=== PATIENT | female | born 1995 | race Caucasian/White ===

== ENCOUNTER → 2021-12-21 | Outpatient (CLI) | payer SELFPAY ==
[2021-12-21 10:07] LABS: Thyroid Stim Hormone (TSH) 1.33 uIU/mL (0.358-3.74)
== END | disposition home or self-care (01) ==
LOC: PAVLAB 09:18
PROVIDERS: PCP Physician Assistant; Referring Provider Obstetrics & Gynecology; Visit Provider Obstetrics & Gynecology
DX: N97.9 Female infertility, unspecified (principal)
CPT/HCPCS: 36415; 84443

== ENCOUNTER → 2022-03-24 | Outpatient (CLI) | payer BC, SELFPAY ==
--- NOTE | 2022-03-24 12:14 | RAD_ITS ---
STUDY: HSG REASON FOR EXAM: Female, 26 years old. Infertility RADIATION DOSAGE (If Supplied By Facility): CTDIvol = ( ) mGy, DLP = ( ) mGycm. Individualized dose optimization techniques were used for this CT.? FLUOROSCOPY TIME (if supplied): ( 0:29 ) minutes/seconds. 2 fluoroscopic images obtained TECHNIQUE: Procedure performed by Dr. Calderon COMPARISON: None. FINDINGS: Contrast was injected into the endometrial cavity by Dr. Calderon in a retrograde manner. There is no impingement upon or abnormality noted within the endometrium. There is free flow of contrast into both fallopian tubes. No evidence of stenosis or obstruction. RAD/Salpingogram IMPRESSION: Normal hysterosalpingogram Electronically Signed: Torey Rg MD at 13:16 EDT ,
--- NOTE | 2022-03-25 11:28 | OP.PCM_ITS ---
Operative Report Date of Procedure: 03/25/22 Preop diagnosis: Infertility Postop diagnosis: Same plus bilateral tubal patency Procedure: Hysterosalpingogram Surgeon: Pippa Calderon Implantable devices: None Complications: None Findings: Bilateral tubal patency and normal uterine cavity Operative details: Patient was taken to the x-ray room and was placed on the x- ray table and was in the dorsal lithotomy position. Speculum was placed in the vagina and the cervix prepped with Betadine and the HSG catheter was easily introduced into the uterus and speculum removed. Radiologist was brought in and while pushing radiopaque dye into the uterus via the HSG catheter the radiologist took multiple images and views and confirmed bilateral tubal patency seen. No gross uterine filling defects or abnormalities were seen. All instruments removed from the vagina and the uterus without complication. Patient tolerated the procedure well. Multi Select Codes Urinary/Genital Urinary/Genital CPT Codes: 12366 HSG/SIS
== END | disposition home or self-care (01) ==
PROVIDERS: PCP Physician Assistant; Referring Provider Obstetrics & Gynecology; Visit Provider Obstetrics & Gynecology
DX: N97.9 Female infertility, unspecified (principal)
CPT/HCPCS: 58340; 74740; Q9967

== ENCOUNTER 2022-11-09 18:38 | Observation (INO) | payer BC, SELFPAY ==
[2022-11-09 19:37] VITALS: BMI 25.1
[2022-11-09] MEDS: 0.9% Normal Saline 1,000 ML 125 ML IV (19:41)
[2022-11-09] MEDS: 0.9% Saline Lock 10 ML Syringe IV (19:53)
[2022-11-09] MEDS: Ketorolac 30 MG/ML Syringe IV (19:53)
[2022-11-09 19:55] VITALS: BP 122/58; PULSE 95; RESP 18; TEMP 37.7; O2SAT 98
[2022-11-09 20:45] LABS: Absolute Lymphocyte Count 1.07 X10^3/uL (0.83-4.51); Absolute Neutrophil Count 12.4 X10^3/uL (2.0-7.7); Basophil# 0.04 X10^3/uL; Basophil% 0.3 % (0-1); Eosinophil# 0.01 X10^3/uL; Eosinophils% 0.1 % (0-5); Hematocrit 36.6 % (37-47); Hemoglobin 11.9 g/dL (12.0-15.0); Lymphocyte # 1.07 X10^3/ul (0.83-4.51); Lymphocyte % 7.6 % (19-41); Mean Corp Hgb Conc 32.5 g/dL (32-36); Mean Corpuscular Hgb 30.1 pg (27.0-32.0); Mean Corpuscular Volume 92.7 fL (81-99); Mean Platelet Vol. 11.6 fl (6.2-12.0); Monocyte# 0.57 X10^3/uL; NRBC Flagged by Analyzer 0 % (0-5); Neutrophil # 12.38 X10^3/uL (2.7-7.7); Neutrophil % 87.4 % (47-70); Platelet Count 174 K/mm3 (150-450); RBC Distribution Width CV 12.7 % (11.6-14.6); RBC Distribution Width SD 43.3 fl (35.1-43.9); Red Blood Count 3.95 M/mm3 (4.2-5.4); White Blood Count 14.2 K/mm3 (4.4-11.0)
--- NOTE | 2022-11-09 20:50 | CT_ITS ---
EXAM: CT ABDOMEN AND PELVIS WITHOUT INTRAVENOUS CONTRAST CLINICAL INDICATION: rule out small bowel obstruction TECHNIQUE: Helically acquired images were obtained of the abdomen and pelvis without intravenous contrast. This CT exam was performed using one or more of the following dose reduction techniques: automated exposure control, adjustment of the mA and/or kV according to patient size, and/or use of iterative reconstruction technique. CONTRAST: oral contrast-gastrografin COMPARISON: No relevant prior studies available. FINDINGS: LOWER THORAX: There is minimal bibasilar atelectasis. No cardiomegaly. No significant pericardial effusion. ABDOMEN: LIVER: Unremarkable. Homogeneous. GALLBLADDER AND BILE DUCTS: Unremarkable. No calcified gallstones. No gallbladder distention or wall edema. No intra- or extrahepatic biliary ductal dilation. PANCREAS: Unremarkable. No focal cystic mass. SPLEEN: Unremarkable. Normal size without focal cystic or solid mass. ADRENALS: Unremarkable. No nodules. KIDNEYS AND URETERS: Unremarkable. Normal renal size and position. No hydronephrosis. STOMACH AND BOWEL: Unremarkable. No stomach or bowel distention. No focal inflammatory change. PELVIS: APPENDIX: There is minimal fluid and inflammation seen in the right paracolic gutter and pelvis. The appendix is not visualized. BLADDER: Unremarkable. REPRODUCTIVE: Unremarkable as visualized. No mass. ABDOMEN and PELVIS: INTRAPERITONEAL SPACE: There is no focal fluid collection or abscess identified. No free air. BONES/JOINTS: Unremarkable. No suspicious lytic or blastic abnormality. SOFT TISSUES: Unremarkable. No discrete abdominal or pelvic wall hernia. VASCULATURE: Unremarkable. Abdominal aorta is non-dilated. LYMPH NODES: Unremarkable. No enlarged lymph nodes. CT/Abdomen/Pel W ORAL Cont Only IMPRESSION: Fluid in the right paracolic gutter and pelvis with minimal inflammation. There are no abnormal loops of bowel identified. There is no obstruction seen. No other acute abnormalities are identified. The lack of intravenous contrast material decreases sensitivity for detection of pathology. Electronically Signed: Morris Dudley MD at 22:58 EDT ,
[2022-11-09 21:09] LABS: ALB/GLOB Ratio 0.8 RATIO (0.9-2.4); AST(SGOT) 10 U/L (15-37); Alanine Aminotransfer ALT/SGPT 10 U/L (13-56); Albumin, Serum 2.9 g/dL (3.2-5.0); Alkaline Phosphatase 21 U/L (45-117); Amylase 28 U/L (25-115); Anion Gap 8 (5-15); BUN 8 mg/dL (7-18); BUN/Creat Ratio 11.6 RATIO (10-20); Calcium,Total 8.3 mg/dL (8.5-10.1); Chloride 112 mmol/L (98-107); Creatinine, Serum 0.69 mg/dL (0.55-1.02); EST Glomerular Filtration Rate 109 mL/min (>60); Est Glom Filt Rate - Afr Amer 131 mL/min (>60); Estimated Creatinine Clearance 105.76 ml/min; Globulin 3.8 g/dL (2.2-4.2); Glucose 86 mg/dL (74-106); Lipase 13 U/L (13-75); Potassium 3.4 mmol/L (3.5-5.1); Protein, Total 6.7 g/dL (6.4-8.2); Sodium Level 141 mmol/L (136-145)
--- NOTE | 2022-11-09 21:49 | PCM.HP.OB ---
HPI - General General Date of Admission: 11/09/22 HPI Narrative ROCIO WALLER, is a 27 y/o G0 who presents to [facility] as a transport from [facility] ER for acute pelvic pain. CT showed a possible small bowel obstruction described as a 3 cm distention of the bowel. The scan also showed a 4 cm ovarian cyst. An ultrasound was ordered showing an enlarged ovary with a 6 cm hemorrhagic cyst and a 3.5 cm simple cyst within it. There was adequate blood flow to the ovary seen. The patient was also found to have an elevated WBC count of 16 and a possible UTI. SHe was treated with one dose of IV rocephin in the ER there. Rocio has a 3 year history of unexplained infertility. Last year she underwent an HSG that was found to be normal and a consult with [facility] in [place]. She states that her and her have decided not to go any further with infertility at this time due to cost and time. She has monthly menses but states that this month was heavier than most. She denies current nausea, vomiting, diarrhea, or constipation. She admits to passing gas and feels hungry since she has been NPO since 3 am today (currently 8 pm). She denies fevers or chills. 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 [place] [facility] Constitutional Constitutional: Denies change in weight, fatigue, fever(s), headache(s), poor appetite or weakness Eyes Eyes: Denies blurry vision, change in vision, seeing flashes or spots in vision ENT HEENT: Denies dizziness, headache(s), loss taste/smell or sore throat Cardiovascular Cardiovascular: Denies chest pain, dizziness, dyspnea, irregular heart rhythm, leg edema, palpitations, rapid heart rate or vomiting Respiratory/Chest Respiratory/Chest: Denies chest tightness, cough, dyspnea or breast pain Gastrointestinal Gastrointestinal: Denies abdominal pain, anorexia, constipation, cramping, diarrhea, hemorrhoids, vomiting or weight changes Genitourinary Genitourinary: Denies dysuria, flank pain, genital lesions, genital pain, urinary frequency or urinary urgency Musculoskeletal Musculoskeletal: Denies back pain, difficulty walking, joint pain, limited range of motion, muscle cramps or numbness Integumentary Integumentary: Denies lesions or unusual bruising Neurologic Neurologic: Denies abnormal movements, abnormal speech, dizziness, numbness, seizure-like activity or syncope Psychiatric Psychiatric: Denies anxiety, behavioral changes, change in appetite, change in libido, cognitive impairment, confusion, depression, difficulty concentrating, hallucinations or suicidal thoughts Endocrine Endocrinology: Denies excessive sweating, polydipsia or polyuria Hematologic/Lymphatic Hematologic/Lymphatic: Denies easy bleeding, easy bruising or lymphadenopathy Allergic/Immunologic Allergic/Immunologic: Denies itchy eyes, lip swelling, seasonal rhinorrhea, rhinitis, throat swelling, tongue swelling, eczemia, wheezing or asthma Vital Signs Vital Signs Vital Signs: 11/09/22 19:55 11/09/22 21:02 Temperature 99.8 F H Temperature Source Oral Pulse Rate 95 Respiratory Rate 18 Respiratory Effort Normal Non-Labored Respiratory Depth Normal Respiratory Pattern Normal Blood Pressure 122/58 H Blood Pressure Mean 79 Blood Pressure Source Monitor Blood Pressure Position Semi-Fowlers Blood Pressure Location Left Arm Pulse Ox 98 Oxygen Delivery Method Room Air Room Air Weight Weight: 146 lb 6.191 oz Body Mass Index (BMI) 25.1 Physical Exam Const alert, oriented x3, no apparent distress and healthy appearing General Appearance: cooperative; Negative for anxious HEENT normocephalic Face and Sinus: normal facial exam Eyes EOMs intact bilaterally and no scleral icterus General Eye: normal appearance of both eyes Neck full ROM and supple Lymph Lymphatic: no lymphadenopathy noted Chest Chest: abnormal inspection of the chest Resp normal respiratory effort Effort and Inspection: able to speak in complete sentences Cardio regular rate GI soft to palpation and non-tender Auscultation: normoactive bowel sounds Palpation: soft; Negative for tender Back/Spine no CVA tenderness Extremity normal to inspection, full ROM and no clubbing, cyanosis or edema General Extremity: Negative for calf tenderness or edema Skin Lesions: no lesions Rashes: no rashes Psych mental status grossly normal Labs Labs Labs: Hct 36.6 % (37-47) L Hgb 11.9 g/dL (12.0-15.0) L Miscellaneous Test Assessment & Plan (1) Infertility, female: COMMENT: [facility] per patient- obtain records (2) Ovarian cyst: (3) Abdominal pain: PLAN: Plan plan at this time is to admit to [facility], vitals per routine npo rpt labs from [place] - cbc, cmp, amylase, lipase CT with oral contrast to rule out SBO rpt ultrasound in am if CT normal may eat a light snack tonight then NPO after midnight until rpt scan in the am if ovarian cyst is less than 10 cm and good blood flow, observation is favored dilaudid for pain >6/10 and toradol for 5 or less IV fluids - NS at 125cc/hr. Charges/Coding Multi Select Codes Visit Charges Visit Charges: 90869 Init Hosp L3
[2022-11-10 02:18] VITALS: BP 117/66; PULSE 93; RESP 18; TEMP 37.1; O2SAT 100
[2022-11-10] MEDS: 0.9% Normal Saline 1,000 ML 125 ML IV (02:25)
[2022-11-10] MEDS: Ketorolac 30 MG/ML Syringe IV (02:25)
[2022-11-10 06:16] LABS: Absolute Lymphocyte Count 1.11 X10^3/uL (0.83-4.51); Absolute Neutrophil Count 6.5 X10^3/uL (2.0-7.7); Basophil# 0.02 X10^3/uL; Basophil% 0.2 % (0-1); Eosinophil# 0.09 X10^3/uL; Eosinophils% 1.1 % (0-5); Hematocrit 36.3 % (37-47); Hemoglobin 11.6 g/dL (12.0-15.0); Lymphocyte # 1.11 X10^3/ul (0.83-4.51); Lymphocyte % 13.4 % (19-41); Mean Corpuscular Volume 93.8 fL (81-99); Mean Platelet Vol. 11.7 fl (6.2-12.0); NRBC Flagged by Analyzer 0 % (0-5); Neutrophil # 6.54 X10^3/uL (2.7-7.7); Neutrophil % 78.9 % (47-70); Platelet Count 164 K/mm3 (150-450); RBC Distribution Width CV 12.8 % (11.6-14.6); RBC Distribution Width SD 43.8 fl (35.1-43.9); Red Blood Count 3.87 M/mm3 (4.2-5.4); White Blood Count 8.3 K/mm3 (4.4-11.0)
--- NOTE | 2022-11-10 07:00 | US_ITS ---
STUDY: ULTRASOUND OF THE FEMALE PELVIS - COMPLETE REASON FOR EXAM: Female, 27 years old. Ovarian mass LMP: November 06, 2022. TECHNIQUE: Transvaginal TECHNICAL QUALITY: Adequate. COMPARISON: Comparison made with prior axial examination dated November 09, 2022. FINDINGS: The uterus is anteverted and is in a midline position. The uterus measures 10 cm x 6.1 cm x 5.2 cm. Normal uterine cervix. The endometrium measures 3.7 mm in thickness, and is hyperechoic. There is no demonstrated endometrial mass. There is no demonstrated myometrial mass. I.U.D. - The patient does not have an I.U.D. The right ovary is visualized. The right ovary measures 3.9 cm x 3.3 cm x 1.5 cm. There is no right ovarian cyst or ovarian mass. There is no visualized right adnexal mass or complex lesion. There is normal arterial and normal venous vascularity. The left ovary is visualized. The left ovary is enlarged and measures 9.6 cm x 10.2 cm x 7.9 cm. There is evidence of an 8.5 cm x 3.9 cm by 3.4 cm cyst in the left ovary. Adjacent to this, there is evidence of a 3.4 cm x 3.4 sided by 2.5 cm hemorrhagic cyst. There is no visualized left adnexal mass or complex lesion. There is normal arterial and normal venous vascularity. There is no fluid in the cul-de-sac. US/Transvaginal Non- IMPRESSION: Enlarged left ovary. 8.5 cm x 3.9 sided by 3.4 cm cyst in the left ovary. 3.4 cm x 3.4 cm x 2.5 cm hemorrhagic cyst in the left ovary. Electronically Signed: Shree Wise MD at 8:28 EDT ,
[2022-11-10 08:06] VITALS: BP 116/68; PULSE 70; RESP 18; TEMP 36.8; O2SAT 98
--- NOTE | 2022-11-10 09:07 | CASEMGMT ---
RN JL Assessment: Face to Face with pt for initial transition planning/care coordination assessment. RN CM introduced self and role at [facility], pt voices understanding and consents to assessment. Pt is A/O x4 and answers all questions appropriately at this time. Pt sitting up in bed in no distress with at bedside. Care providers, pharmacy, and demographics verified/updated. Admitting Dx: ovarian mass, ileus PCP:KELIN Do Specialists:Yumiko, INFORMATION SECURITY ASSOCIATE Preferred Pharmacy: [facility] Retail Insurance: [place] Prescription Benefit: yes LNOK: Sameer Smith, Living Arrangements: Pt lives with in a single story home with 3 steps to enter. Pt reports she is I in ADL's and denies concerns at home. Transportation: Pt drives self and denies concerns with transportation. DME/HHC/SNF: Pt denies having any DME in the home, previous HHC or SNF stays. Pt states no concerns with going home at time of dc. Pt states no further concerns/needs. CM to follow. Advised pt to ask CM if any further question/concerns/needs arise, voices understanding. Pt Goal: Home Plan: Home
--- NOTE | 2022-11-10 10:03 | PCM.PN.OB ---
Subjective Subjective pt is sitting up in bed. Just returned from ultrasound and she states that she is feeling much better. No nausea, vomiting, diarrhea, constipation (had a bowel movement last night after her CT with oral contrast) ultrasound today shows that there is a simple cyst measuring 8 cm on the left ovary. adjacent to that cyst is a complex 3 cm cyst. The ovary has good blood flow. Objective Data Objective Data Vital Signs: Vital Signs Temp Pulse Resp BP Pulse Ox O2 Del Method 98.3 F 70 18 116/68 98 Room Air 11/10/22 08:06 11/10/22 08:06 11/10/22 08:06 11/10/22 08:06 11/10/22 08:06 11/10/22 08:06 Oxygen Delivery Method Room Air Weight: 146 lb 6.191 oz Body Mass Index (BMI) 25.1 Intake & Output: Intake and Output for Last 24 Hours 11/08/22 11/09/22 11/10/22 23:59 23:59 23:59 Intake Total 2833.50 / 2833.50 Output Total 500 / 500 Balance 2333.50 / 2333.50 Lab / Micro Data Result Diagrams: 11/10/22 05:50 11/09/22 20:21 Labs: Laboratory Results - last 24 hr 11/09/22 20:21: WBC 14.2 H, RBC 3.95 L, Hgb 11.9 L, Hct 36.6 L, MCV 92.7, MCH 30.1, MCHC 32.5, RDW Std Deviation 43.3, RDW Coeff of Ras 12.7, Plt Count 174, MPV 11.6, Immature Gran % (Auto) 0.600, Neut % (Auto) 87.4 H, Lymph % (Auto) 7.6 L, [place] % (Auto) 4.0, Eos % (Auto) 0.1, Baso % (Auto) 0.3, Absolute Neuts (auto) 12.4 H, Absolute Lymphs (auto) 1.07, Nucleated RBC % 0 11/09/22 20:21: Sodium 141, Potassium 3.4 L, Chloride 112 H, Carbon Dioxide 21.0, Anion Gap 8, BUN 8, Creatinine 0.69, Estim Creat Clear Calc 105.76, Est GFR (MDRD) Af Amer 131, Est GFR (MDRD) Non-Af 109, BUN/Creatinine Ratio 11.6, Glucose 86, Calcium 8.3 L, Total Bilirubin 0.80, AST 10 L, ALT 10 L, Alkaline Phosphatase 21 L, Total Protein 6.7, Albumin 2.9 L, Globulin 3.8, Albumin/Globulin Ratio 0.8 L, Amylase 28, Lipase 13 11/10/22 05:50: WBC 8.3, RBC 3.87 L, Hgb 11.6 L, Hct 36.3 L, MCV 93.8, MCH 30.0, MCHC 32.0, RDW Std Deviation 43.8, RDW Coeff of Ras 12.8, Plt Count 164, MPV 11.7, Immature Gran % (Auto) 0.400, Neut % (Auto) 78.9 H, Lymph % (Auto) 13.4 L, [place] % (Auto) 6.0, Eos % (Auto) 1.1, Baso % (Auto) 0.2, Absolute Neuts (auto) 6.5, Absolute Lymphs (auto) 1.11, Nucleated RBC % 0 Radiography Diagnostic Testing: Radiology Impression Abdomen CT 11/09/22 20:50 IMPRESSION: Fluid in the right paracolic gutter and pelvis with minimal inflammation. There are no abnormal loops of bowel identified. There is no obstruction seen. No other acute abnormalities are identified. The lack of intravenous contrast material decreases sensitivity for detection of pathology. Electronically Signed: Morris Dudley MD at 22:58 EDT , Transvaginal US 11/10/22 07:00 IMPRESSION: Enlarged left ovary. 8.5 cm x 3.9 sided by 3.4 cm cyst in the left ovary. 3.4 cm x 3.4 cm x 2.5 cm hemorrhagic cyst in the left ovary. Electronically Signed: Shree Wise MD at 8:28 EDT , ROS Constitutional Constitutional: Denies chills, fatigue, fever(s), poor appetite or weakness Eyes Eyes: Denies blurry vision, change in vision, seeing flashes or spots in vision ENT HEENT: Denies dizziness, headache(s), loss taste/smell or sore throat Cardiovascular Cardiovascular: Denies chest pain, dizziness, dyspnea, irregular heart rhythm, palpitations or rapid heart rate Respiratory/Chest Respiratory/Chest: Denies chest tightness, cough, dyspnea or breast pain Gastrointestinal Gastrointestinal: Denies abdominal pain, constipation or vomiting Genitourinary Genitourinary: Denies dysuria or flank pain Musculoskeletal Musculoskeletal: Denies difficulty walking, joint pain, limited range of motion or numbness Neurologic Neurologic: Denies abnormal movements, abnormal speech, dizziness, numbness, seizure-like activity or syncope Psychiatric Psychiatric: Denies anxiety, behavioral changes, change in appetite, confusion, depression or suicidal thoughts Physical Exam Const alert, oriented x3 and no apparent distress General Appearance: cooperative and comfortable Resp normal respiratory effort Cardio regular rate GI normal to inspection, nondistended, normoactive bowel sounds Palpation: soft Back/Spine no CVA tenderness and thoraco-lumbar ROM normal Extremity normal to inspection, no clubbing, cyanosis or edema, no calf tenderness and no pedal edema Psych mental status grossly normal, thought process normal, cooperative, affect normal, speech normal, activity/motor behavior normal, denies homicidal ideation and denies suicidal ideation Assessment & Plan (1) Abdominal pain: (2) Ovarian cyst: PLAN: Plan pain is improved and cyst is stable. white count is now normal ok to dc to home on pelvic rest and close follow up for resolution of the cyst. torsion precautions discussed. oxycodone offered and patient declined. will see her in office in 1-2 weeks. Charges/Coding Multi Select Codes Visit Charges Observation E&M Codin Subsequent observation care L3
== END 2022-11-10 10:43 | disposition home or self-care (01) | DRG 761 ==
PROVIDERS: Admitting Provider Obstetrics & Gynecology; PCP Physician Assistant; Referring Provider Obstetrics & Gynecology; Visit Provider Obstetrics & Gynecology
DX: N83.292 Other ovarian cyst, left side (principal); N83.8 Other noninflammatory disorders of ovary, fallopian tube and broad ligament; N97.9 Female infertility, unspecified
CPT/HCPCS: 36415; 74176; 76830; 80053; 82150; 83690; 85025; 93976; 96361; 96374; 96376; 99221; J7030; A4216; G0378; G0379

== ENCOUNTER → 2022-12-15 | Outpatient (CLI) | payer BC, SELFPAY ==
--- NOTE | 2022-12-15 08:07 | US_ITS ---
STUDY: ULTRASOUND OF THE FEMALE PELVIS - COMPLETE REASON FOR EXAM: Female, 27 years old. Ovarian cyst LMP: December 02, 2022. TECHNIQUE: Transabdominal and Transvaginal TECHNICAL QUALITY: Adequate. COMPARISON: Comparison is made with prior study November 10, 2022. FINDINGS: The uterus is anteverted and is tilted to the right side of the pelvis. The uterus measures 9.7 cm x 6.3 cm x 4.7 cm. Normal uterine cervix. The endometrium measures 10.1 mm in thickness, and is . There is no demonstrated endometrial mass. There is no demonstrated myometrial mass. I.U.D. - The patient does not have an I.U.D. The right ovary is visualized. The right ovary measures 3.3 cm x 2.2 cm x 1.6 cm. There is no right ovarian cyst or ovarian mass. There is no visualized right adnexal mass or complex lesion. There is normal arterial and normal venous vascularity. The left ovary is visualized. The left ovary measures 7.97 x 5.2 cm x 5.2 cm. There is a 7.4 cm x 5.2 cm x 4.3 cm complex cyst in the left ovary. There is no visualized left adnexal mass or complex lesion. There is normal arterial and normal venous vascularity. There is no fluid in the cul-de-sac. The pre void volume of the bladder was 350 ml. Small amount of free fluid in the pelvis. US/Pelvic (Non ) IMPRESSION: Persistent complex left ovarian cyst. The right ovarian cyst as resolved. Electronically Signed: Shree Wise MD at 10:22 EDT ,
== END | disposition home or self-care (01) ==
PROVIDERS: PCP Physician Assistant; Referring Provider Obstetrics & Gynecology; Visit Provider Obstetrics & Gynecology
DX: N83.209 Unspecified ovarian cyst, unspecified side (principal)
CPT/HCPCS: 76830; 76856

== ENCOUNTER 2023-02-15 14:57 | Day surgery (SDC) | payer BC, SELFPAY ==
[2023-02-15] VITALS (8 sets, daily range): BP systolic 101–118; BP diastolic 57–69; PULSE 71–88; RESP 12–20; TEMP 36.7–37.2; O2SAT 99–100; BMI 26.2
[2023-02-15 15:29] LABS: Internal QC Validated? YES +Cl - CLEAR BKGD
[2023-02-15 15:30] LABS: Pregnancy, Serum, hCG Quali. POSITIVE Negative
[2023-02-15 15:51] LABS: Absolute Lymphocyte Count 1.03 X10^3/uL (0.83-4.51); Absolute Neutrophil Count 21.8 X10^3/uL (2.0-7.7); Basophil# 0.05 X10^3/uL; Basophil% 0.2 % (0-1); Hematocrit 46.8 % (37-47); Hemoglobin 15.5 g/dL (12.0-15.0); Lymphocyte # 1.03 X10^3/ul (0.83-4.51); Lymphocyte % 4.4 % (19-41); Mean Corp Hgb Conc 33.1 g/dL (32-36); Mean Corpuscular Hgb 29.9 pg (27.0-32.0); Mean Corpuscular Volume 90.3 fL (81-99); Mean Platelet Vol. 11.6 fl (6.2-12.0); Monocyte# 0.65 X10^3/uL; Monocyte% 2.8 % (0-10); NRBC Flagged by Analyzer 0 % (0-5); Neutrophil # 21.76 X10^3/uL (2.7-7.7); Neutrophil % 92.1 % (47-70); POSITIVE DIFFERENTIAL YES; Platelet Count 259 K/mm3 (150-450); RBC Distribution Width CV 12.4 % (11.6-14.6); RBC Distribution Width SD 41.3 fl (35.1-43.9); Red Blood Count 5.18 M/mm3 (4.2-5.4); White Blood Count 23.6 K/mm3 (4.4-11.0)
--- NOTE | 2023-02-15 15:53 | ED.VIS.GI ---
HPI HPI - GI History of Present Illness Chief Complaint: Abd Pain Detail of Chief Complaint: Abdominal pain Informant: patient Narrative Narrative: Patient presents the emergency department with complaint of abdominal pain that started today around 1 PM. Patient states that the pain came on rather suddenly. Pain is continuous and in the lower abdomen. She has vomited x3. She denies any fevers. Denies urinary symptoms. She denies vaginal bleeding. She is G1, P0 and believes that she is 6 weeks . Her primary care physician is Dr. Snyder. 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 [address] ROS ROS ED Review of Systems ROS Unobtainable: other Constitutional Constitutional ED: Reports lethargy; Denies chills, fever(s), sweats or weight loss Eyes Eyes: Denies blurry vision, change in vision or diplopia ENT ENT ED: Denies rhinorrhea or sore throat Cardiovascular Cardiovascular: Denies chest pain, orthopnea or racing heartbeat Respiratory/Chest Respiratory/Chest: Denies cough, dyspnea, dyspnea on exertion, orthopnea or sputum Gastrointestinal Gastrointestinal: Reports abdominal pain, nausea and vomiting; Denies diarrhea Genitourinary Genitourinary ED: Denies dysuria, hematuria or urinary frequency Musculoskeletal Musculoskeletal: Denies arthralgias, back pain, myalgias or neck pain Integumentary Denies abscess, Abrasions or rash Neurologic Neurologic: Denies headache(s) or weakness Psychiatric Psychiatric: Denies anxiety, depression or suicidal thoughts Endocrine Endocrinology: Denies polydipsia, polyphagia or polyuria Hematologic/Lymphatic Hematologic/Lymphatic: Denies easy bleeding, easy bruising or lymphadenopathy Allergic/Immunologic Allergic/Immunologic ED: Denies mouth swelling, tongue swelling or urticaria EXAM Physical Exam Const Vital Signs: 02/15/23 14:57 02/15/23 18:00 02/15/23 20:21 Temperature 98.2 F 98.1 F 98.7 F Temperature Source Temporal Oral Temporal Pulse Rate 85 71 76 Respiratory Rate 20 H 12 16 Respiratory Pattern Normal Blood Pressure 101/63 109/57 L 118/57 L Blood Pressure Mean 75 74 77 Blood Pressure Source Monitor Blood Pressure Position Supine Blood Pressure Location Left Arm Baseline BP 109/57 Pulse Ox 99 100 100 Oxygen Delivery Method Room Air Room Air Room Air 02/15/23 20:30 02/15/23 20:45 02/15/23 21:00 Temperature Temperature Source Pulse Rate 72 73 71 Respiratory Rate 16 16 16 Respiratory Pattern Blood Pressure 114/62 117/69 104/63 Blood Pressure Mean 79 85 76 Blood Pressure Source Monitor Monitor Monitor Blood Pressure Position Supine Semi-Fowlers Supine Blood Pressure Location Left Arm Right Arm Left Arm Baseline BP 109/57 109/57 109/57 Pulse Ox 100 100 100 Oxygen Delivery Method Room Air Room Air Room Air 02/15/23 21:15 02/15/23 21:30 02/15/23 21:42 Temperature 99 F Temperature Source Temporal Pulse Rate 86 88 Respiratory Rate 16 16 Respiratory Pattern Normal Blood Pressure 112/67 109/66 Blood Pressure Mean 82 80 Blood Pressure Source Monitor Monitor Blood Pressure Position Semi-Fowlers Semi-Fowlers Blood Pressure Location Left Arm Left Arm Baseline BP 109/57 109/57 Pulse Ox 100 99 Oxygen Delivery Method Room Air Room Air Positive well nourished and well developed General Appearance ED: well developed and NAD HEENT Reports TM's clear and moist mucous membranes normocephalic and atraumatic; Negative for trauma or tenderness Tympanic Membrane ED: Yes TM's clear Eyes PERRL and EOMs intact bilaterally General Eye ED: Negative for pale conjunctiva or scleral icterus Neck no lymphadenopathy, supple and no JVD General: Negative for tenderness Chest Wall inspection of chest normal and palpation of chest normal Chest: Negative for tenderness Resp normal respiratory effort and clear to auscultation bilaterally Effort and Inspection: Negative for respiratory distress or pain with movement Auscultation: Negative for rhonchi, wheezes or diminished lung sounds Cardio regular rate, regular rhythm, S1 normal heart sound, S2 normal heart sound and no murmurs Peripheral Pulses: pulses 2+ throughout GI normal to inspection, nondistended, normoactive bowel sounds, soft to palpation, non-distended and no masses GI Narrative: Diffuse tenderness to palpation over the lower abdomen. Patient really does not allow palpation of the abdomen very well. I do not appreciate any rebound or rigidity. Back/Spine no CVA tenderness and no thoracic nor lumbar tenderness Extremity normal to inspection General Extremety ED: Negative for edema General Extremity: Negative for edema Neuro oriented x3, CN's II-XII intact bilaterally, no sensory deficits noted and gait normal Sensorium / Orientation: awake, alert, oriented to person, oriented to place and oriented to time Motor Exam: strength 5/5 throughout and strength abnormal Psych mental status grossly normal Skin no rashes or lesions noted and no wounds MDM MDM MDM Narrative Medical decision making narrative: Patient presents with sudden abdominal pain and . In a differential would be kidney stone versus ectopic versus UTI or ovarian cyst. I will establish. Patient was medicated morphine and Zofran. CBC with differential obtained showing a 23.6 with hemoglobin of 15 and platelet count 259. Chemistries were unremarkable. LFTs unremarkable. Serum hCG was positive and quant was 30,546. Pelvic ultrasound obtained and technical training coordinator called to say that patient had a live intrauterine as well as suspected ectopic on the left with significant amount of blood in the abdomen. 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 Snyder who will call in the OR team and present to the emergency department to evaluate patient. Dr. Snyder evaluated the ultrasound as well and believes this could also be a hemorrhagic cyst that may have ruptured. Patient will go to operating room for definitive care. Lab Data Labs: Laboratory Results - last 24 hr 02/15/23 02/15/23 15:10 16:15 WBC 23.6 H RBC 5.18 Hgb 15.5 H Hct 46.8 MCV 90.3 MCH 29.9 MCHC 33.1 RDW Std Deviation 41.3 RDW Coeff of Ras 12.4 Plt Count 259 MPV 11.6 Immature Gran % (Auto) 0.500 Neut % (Auto) 92.1 H Lymph % (Auto) 4.4 L Owen % (Auto) 2.8 Eos % (Auto) 0.0 Baso % (Auto) 0.2 Absolute Neuts (auto) 21.8 H Absolute Lymphs (auto) 1.03 Nucleated RBC % 0 Differential Comment SCANNED Sodium 135 L Potassium 3.9 Chloride 106 Carbon Dioxide 22.0 Anion Gap 7 BUN 10 Creatinine 0.86 Est GFR (MDRD) Af Amer 101 Est GFR (MDRD) Non-Af 84 BUN/Creatinine Ratio 11.6 Glucose 112 H Calcium 8.9 Total Bilirubin 0.70 AST 16 ALT 16 Alkaline Phosphatase 21 L Total Protein 7.8 Albumin 3.9 Globulin 3.9 Albumin/Globulin Ratio 1.0 HCG, Quant 43864 H Serum , Qual POSITIVE H Antibody Screen NEGATIVE Radiography Diagnostic Testing: Clinical Impression(s) from Imaging Studies Obstetrics Ultrasound 02/15/23 15:56 IMPRESSION: Single live intrauterine gestation with ultrasound EGA of approximately 6 weeks 5 days. Small subchorionic hemorrhage. There is no confirmation of blood flow to the left ovary on these images. Focal free fluid seen around the left ovary/adnexa. Electronically Signed: Omer Woodward MD at 17:50 EDT , Discharge Plan Dx/Rx/DC Orders Clinical Impression: Ectopic , Leukocytosis, , Abdominal pain Disposition Disposition: Acute Care Hospital [facility] Discharge Date/Time: 02/15/23 18:42
[2023-02-15 15:55] LABS: Differential Indicated SCAN CRITERIA MET
--- NOTE | 2023-02-15 15:56 | US_ITS ---
STUDY: FIRST TRIMESTER OBSTETRICAL ULTRASOUND REASON FOR EXAM: Female, 27 years old abdominal pain LMP: 12/30/2022 TECHNIQUE: Transabdominal and Transvaginal TECHNICAL QUALITY: Adequate. PRIOR ULTRASOUND: None. FINDINGS: There is visualization of a single gestational sac in a normal intrauterine position. The mean sac diameter (MSD) measures 1.8 cm, indicating an estimated gestational age (EGA) of 6 weeks, 5 days. The gestational sac shape is within normal limits. Small subchorionic hemorrhage. There is a visualized yolk sac. The yolk sac measures 3 mm. The placenta is non-visualized. There is visualization of a live embryo. The crown-rump length (CRL) measures 6.2 mm, indicating an estimated gestational age (EGA) of 6 weeks, 4 days. There is demonstrated cardiac activity with a heart rate of 1:30 bpm. The estimated gestation age (EGA) by LMP is 6 weeks, 5 days. The estimated date of delivery (IFTIKHAR) by LMP is 10/06/2023. The estimated gestation age (EGA) by US is 6 weeks, 5 days. The estimated date of delivery (IFTIKHAR) by US is 10/06/2023. The uterus measures 10.3 x 8.3 x 6.1 cm. There is no demonstrated uterine fibroid. The cervix is closed. The right ovary measures 3.2 x 3.6 x 1.6 cm. There is no right ovarian cyst. There is no visualized right adnexal mass or complex lesion. The left ovary measures 3.5 x 3.4 x 2.4 cm. Large amount of fluid in around the area of the left adnexa. Technologist did not confirm blood flow to the left ovary. US/Transvaginal w/Preg US IMPRESSION: Single live intrauterine gestation with ultrasound EGA of approximately 6 weeks 5 days. Small subchorionic hemorrhage. There is no confirmation of blood flow to the left ovary on these images. Focal free fluid seen around the left ovary/adnexa. Electronically Signed: Omer Woodward MD at 17:50 EDT ,
[2023-02-15 15:58] LABS: AST(SGOT) 16 U/L (15-37); Alanine Aminotransfer ALT/SGPT 16 U/L (13-56); Albumin, Serum 3.9 g/dL (3.2-5.0); Alkaline Phosphatase 21 U/L (45-117); Anion Gap 7 (5-15); BUN 10 mg/dL (7-18); BUN/Creat Ratio 11.6 RATIO (10-20); Calcium,Total 8.9 mg/dL (8.5-10.1); Chloride 106 mmol/L (98-107); Creatinine, Serum 0.86 mg/dL (0.55-1.02); EST Glomerular Filtration Rate 84 mL/min (>60); Est Glom Filt Rate - Afr Amer 101 mL/min (>60); Globulin 3.9 g/dL (2.2-4.2); Glucose 112 mg/dL (74-106); Potassium 3.9 mmol/L (3.5-5.1); Protein, Total 7.8 g/dL (6.4-8.2); Sodium Level 135 mmol/L (136-145)
[2023-02-15 16:13] LABS: Differential Comment SCANNED
[2023-02-15] MEDS: Morphine 4 MG/ML Syringe IV ×2 (16:13→18:07)
[2023-02-15] MEDS: Ondansetron 4 MG/2 ML Vial IV (16:13)
[2023-02-15] MEDS: 0.9% Normal Saline (1000mL) 1,000 ML 150 ML IV (16:19)
--- NOTE | 2023-02-15 18:01 | HP.PCM.OB_ITS ---
[facility] - [facility] General Date of Admission: 02/15/23 Chief Complaint: abdominal pain, positive test. HPI Narrative DELBERT WALLER, is a 27 y/o @ 6 weeks gestation who presents to L&D with severe onset of left lower quadrant pain. She has a known left ovarian cyst and ultrasound in ER represents a large amount of fluid in the pelvis with likely rupture of the cyst. The technologist informed Dr. Arevalo in Er that she believed it to be a possible heterotopic. The intrauterine measures 6 weeks 4 days with heart tones in the 130's. Her hg is stable and she is not hypotensive. She describes her pain as a 10 on a scale from 1-10. She received 4 mg of morphine a couple of hours ago and is asking for more. 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 [facility] Constitutional Constitutional: Reports systems reviewed and no addt'l complaints, except as documented; Denies fatigue, fever(s), headache(s) or poor appetite Cardiovascular Cardiovascular: Reports abdominal pain, nausea and vomiting; Denies abdominal bloating or syncope Respiratory/Chest Respiratory/Chest: Denies dyspnea or dyspnea on exertion Gastrointestinal Gastrointestinal: Reports abdominal pain, nausea and vomiting; Denies dyspepsia, heartburn or loose stools Genitourinary Genitourinary: Denies flank pain, genital pain, hematuria, urinary frequency or urinary incontinence Musculoskeletal Musculoskeletal: Denies back pain Vital Signs Vital Signs Vital Signs: 02/15/23 14:57 Temperature 98.2 F Temperature Source Temporal Pulse Rate 85 Respiratory Rate 20 H Blood Pressure 101/63 Blood Pressure Mean 75 Pulse Ox 99 Oxygen Delivery Method Room Air Physical Exam Const alert, oriented x3 and no apparent distress General Appearance: cooperative Chest Chest: symmetrical chest wall rise Resp normal respiratory effort Effort and Inspection: able to speak in complete sentences GI Palpation: tender LLQ and suprapubic and guarding LLQ no CVA tenderness Skin no rashes or lesions noted Labs Labs Labs: Blood Type Pending Antibody Screen Pending Hct 46.8 % (37-47) Hgb 15.5 g/dL (12.0-15.0) H Obstetrics US Miscellaneous Test Assessment & Plan (1) : COMMENT: 6w 4d iup on ultrasound 02/15/23 in ER with ruptured left ovarian cyst present, can not rule out heterotopic ruptured ectopic (2) Abdominal pain: (3) Ovarian cyst: PLAN: Plan suspect that the pre-existing left ovarian cyst either ruptured or torsed causing the severe pain. After discussing the patient's diagnosis and treatment plan options, patient wishes to proceed with surgical management. I have discussed with the patient the risks, benefits, and alternatives of the procedure which include but are not limited to risks of anesthesia, bleeding, infection, possible damage to bowel, bladder, or surrounding vasculature which could lead to additional surgery to evaluate any complications. Patient agrees to procedure and wishes to proceed. ACOG/uptodate references given for additional information regarding procedure. plan for diagnostic laparoscopy, possible left oophorectomy, possible left salpingectomy, evacuation of hemoperitoneum.
--- NOTE | 2023-02-15 18:10 | PCM.DC ---
Discharge Instructions Diet Discharge Diet: No restrictions Activity Discharge Activity: May Not Drive and May Shower May resume sexual activity in: 2 weeks Weight Bearing Status: Full weight bearing Dressing / Incision Call your doctor if your incision/area has: Sudden Increased Bleeding, Increased Pain/ Swelling, Foul Smelling Discharge and Swelling at the incision site Call your doctor if you observe: Fever of 101 or Higher Suture Line Care: Avoid Pulling/Pushing and Avoid Pinching/Bending Remove Dressing in: 1 week (if present) Cleanse incision/area with: Soap & Water and Keep Dressing Clean & Dry Follow Up Care Please Follow Up With: Shannon Flores DO When: 1 week Test Results: Test results from this visit will be discussed in further detail at your follow-up appointment, if applicable. Discharge Plan Dx/Rx/DC Orders Clinical Impression: Ectopic , Leukocytosis, , Abdominal pain Disposition Disposition: [facility]
--- NOTE | 2023-02-15 19:03 | OP.PCM_ITS ---
Problems Associated Problem List Diagnoses (1) Abdominal pain: (2) : (3) Ovarian cyst: (4) Hemoperitoneum: Report of Operation Date of Procedure: 02/15/23 Pre-Operative Diagnosis: 27 y/o @ 6 weeks 4 days gestation, hemoperitoneum, abdominal pain, suspected ruptured hemorrhagic cyst Post-Operative Diagnosis: 27 y/o @ 6 weeks 4 days gestation, hemoperitoneum, abdominal pain, ruptured hemorrhagic cyst, endometriosis Surgery/Procedure Performed:: lysis of endometriosis adhesions, evacuation of hemoperitoneum Surgeon: Shannon Flores underground mine superintendent: Cody Daley Type of Anesthesia: General Anesthesiologist: Tejas Yang Specimen's removed: none Drains: nonw Estimated Blood Loss (mL): 100cc Description of Procedure: The patient was brought to the operating room. General anesthesia was found to be adequate. She was prepped and draped in the normal sterile fashion. Sponge stick was placed in the vagina gloves were changed and attention was turned towards the abdomen. Infraumbilical skin incision was made with a scalpel after injection of quarter percent Marcaine. A varies needle was inserted into the abdomen and a drip test was performed and passed pneumoperitoneum was achieved. A 5 mm laparoscopic trocar was inserted into the abdomen under direct visualization using a 5 mm laparoscope. The wound was noted to have a copious amount of brown chocolate material consistent with an endometrioma. There were fine adhesions adherent from the omentum to the anterior abdominal wall from the omentum to the fallopian tubes from the omentum to the ovaries and from the ovaries to the uterus. Both fallopian tubes were adherent together. A left lower quadrant trocar was inserted into the abdomen under direct visualization. A suprapubic alligator trocar was inserted next. It was inserted to provide countertraction. all adhesions were taken down with the LigaSure device. The left ovary was noted to have a approximate 1 cm hole in the posterior aspect that was draining a chocolate material consistent with an endometrioma. Irrigation was performed using approximately 500 cc of normal saline which was then evacuated out. After irrigation all areas were noted to be hemostatic. At this point due to the the decision was made to stop the procedure to prevent any further trauma to the uterus. The left lower quadrant trocar was first removed followed by the umbilical trocar and the alligator trocar. The skin was closed with a 4-0 Monocryl and sealed with surgical glue. The patient tolerated the procedure well sponge lap and needle counts were correct x2 she is now being brought to the recovery room in stable condition. Grafts/Implants Used: none Complications none Admit VTE Documentation VTE Present on Admission: No VTE Mechan Device Prophylaxis: SCD's VTE Pharm Prophylaxis ordered?: No Multi Select Codes Urinary/Genital Urinary/Genital CPT Codes: 70671 Lysis of adhesions, laproscopic
[2023-02-15] MEDS: Bupivacaine 0.25% 30 ML Vial (19:23)
[2023-02-15] MEDS: Oxycodone/Apap 5/325 Tablet PO (21:39)
== END 2023-02-15 22:32 | disposition home or self-care (01) ==
LOC: ED 18:06 → MS3 20:50 → ED 20:52 → SDC 20:52 → MS3 02-17 08:44
PROVIDERS: Emergency Provider Emergency Medicine; PCP Physician Assistant; Visit Provider Obstetrics & Gynecology
PROC: 10T24ZZ Resection of Products of Conception, Ectopic, Percutaneous Endoscopic Approach (ICD-10-PCS; CPT 59150; principal; 2023-02-15 19:00)
DX: K66.1 Hemoperitoneum (principal); O99.611 Diseases of the digestive system complicating pregnancy, first trimester; Z3A.01 Less than 8 weeks gestation of pregnancy; O99.62 Diseases of the digestive system complicating childbirth; K66.0 Peritoneal adhesions (postprocedural) (postinfection)
CPT/HCPCS: 58660; 00840; 76817; 80053; 84702; 84703; 85025; 86850; 86900; 86901; 99285; J7030; A4216; J2405

== ENCOUNTER → 2023-03-01 | Outpatient (CLI) | payer BC, SELFPAY ==
[2023-03-03 22:07] LABS: Chlamydia By Nucleic Acid AMP Negative (Negative); Gonococcus By Nucleic Acid AMP Negative (Negative)
== END | disposition home or self-care (01) ==
LOC: LABSPEC 15:18
PROVIDERS: Referring Provider Registered Nurse; Visit Provider Registered Nurse
DX: Z34.90 Encounter for supervision of normal pregnancy, unspecified, unspecified trimester (principal)
CPT/HCPCS: 87086; 87491; 87591

== ENCOUNTER → 2023-03-16 | Outpatient (CLI) | payer BC, SELFPAY ==
[2023-03-16 15:01] LABS: NATERA MAILED SPECIMEN
[2023-03-16 15:13] LABS: Absolute Lymphocyte Count 1.71 X10^3/uL (0.83-4.51); Absolute Neutrophil Count 6.7 X10^3/uL (2.0-7.7); Basophil# 0.04 X10^3/uL; Basophil% 0.4 % (0-1); Eosinophil# 0.05 X10^3/uL; Eosinophils% 0.5 % (0-5); Hematocrit 40.1 % (37-47); Hemoglobin 13.2 g/dL (12.0-15.0); Lymphocyte # 1.71 X10^3/ul (0.83-4.51); Lymphocyte % 18.7 % (19-41); Mean Corp Hgb Conc 32.9 g/dL (32-36); Mean Corpuscular Volume 91.1 fL (81-99); Mean Platelet Vol. 12.1 fl (6.2-12.0); Monocyte# 0.57 X10^3/uL; Monocyte% 6.2 % (0-10); NRBC Flagged by Analyzer 0 % (0-5); Neutrophil # 6.71 X10^3/uL (2.7-7.7); Neutrophil % 73.7 % (47-70); Platelet Count 196 K/mm3 (150-450); RBC Distribution Width CV 12.6 % (11.6-14.6); RBC Distribution Width SD 41.6 fl (35.1-43.9); White Blood Count 9.1 K/mm3 (4.4-11.0)
[2023-03-16 16:39] LABS: HIV - WCH Non-Reactive (Nonreactive); Hepatitis B Surface Antigen Non-Reactive (Nonreactive); Hepatitis C Antibody Non-Reactive (Nonreactive); Rubella IgG Reactive (Nonreactive); Syphilis Antibodies Non-reactive
== END | disposition home or self-care (01) ==
LOC: LAB 13:56
PROVIDERS: PCP Physician Assistant; Referring Provider Registered Nurse; Visit Provider Registered Nurse
DX: Z34.81 Encounter for supervision of other normal pregnancy, first trimester (principal); Z34.00 Encounter for supervision of normal first pregnancy, unspecified trimester
CPT/HCPCS: 85025; 86703; 86762; 86780; 86803; 86850; 86900; 86901; 87340

== ENCOUNTER → 2023-07-14 | Outpatient (CLI) | payer BC, SELFPAY ==
[2023-07-14 15:56] LABS: Absolute Lymphocyte Count 1.44 X10^3/uL (0.83-4.51); Absolute Neutrophil Count 7.4 X10^3/uL (2.0-7.7); Basophil# 0.02 X10^3/uL; Basophil% 0.2 % (0-1); Eosinophil# 0.05 X10^3/uL; Eosinophils% 0.5 % (0-5); Hemoglobin 11.2 g/dL (12.0-15.0); Lymphocyte # 1.44 X10^3/ul (0.83-4.51); Lymphocyte % 15.4 % (19-41); Mean Corp Hgb Conc 33.9 g/dL (32-36); Mean Corpuscular Volume 88.5 fL (81-99); Mean Platelet Vol. 11.2 fl (6.2-12.0); Monocyte# 0.38 X10^3/uL; Monocyte% 4.1 % (0-10); NRBC Flagged by Analyzer 0 % (0-5); Neutrophil # 7.38 X10^3/uL (2.7-7.7); Neutrophil % 79.2 % (47-70); Platelet Count 179 K/mm3 (150-450); RBC Distribution Width CV 12.3 % (11.6-14.6); RBC Distribution Width SD 39.9 fl (35.1-43.9); Red Blood Count 3.73 M/mm3 (4.2-5.4); White Blood Count 9.3 K/mm3 (4.4-11.0)
[2023-07-14 16:21] LABS: Glucose Challenge Gest 1H 50g 146 mg/dL (70-140)
[2023-07-14 16:56] LABS: HIV - WCH Non-Reactive (Nonreactive); Syphilis Antibodies Non-reactive
== END | disposition home or self-care (01) ==
PROVIDERS: PCP Physician Assistant; Referring Provider Advanced Practice Midwife; Visit Provider Advanced Practice Midwife
DX: O09.90 Supervision of high risk pregnancy, unspecified, unspecified trimester (principal); Z3A.00 Weeks of gestation of pregnancy not specified
CPT/HCPCS: 36415; 82950; 85025; 86703; 86780; 86850; 86900; 86901

== ENCOUNTER → 2023-07-20 | Outpatient (CLI) | payer BC, SELFPAY ==
--- OUTSIDE RECORDS SUMMARY | 2023-07-20 06:58 | XMS RPT_ITS | CCD ---
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 Name Role Phone MOHINI DALLAS Consulting Unavailable ZEYNEP MURPHY DO Attending Unavailable ZEYNEP MURPHY DO Primary Care Unavailable ZEYNEP MURPHY DO Admitting Unavailable MOHINI DALLAS Referring Unavailable PROVIDER, GIOVANNI Consulting Unavailable NO PRIMARY CAREMD Primary Care Unavailable MARKY MARINELLI Referring Unavailabl e BRYON COELHO Attending Unavailable Results Test Name Value Interpretation Reference Range Facil ity Encounters Encounter Date Encounter Type Care Provider Facility Start: 05-16-2023 End: 05-16-2023 ambulatory NO PRIMARY CARE [facility] Start: 11-09-2022 End: 11-09-2022 Emergency department patient visit MOHINI DALLAS [facility] Procedures Date Procedure Procedure Detail Performing Clinician Start: 11-09-2022 Urinalysis MOHINI NEVILLE LMER Payers Date Payer Category Payer Unknown [id number] 1995 Unknown [id number] Unknown [id number] Summary Purpose Family History No Family History Records FoundNo Family History Records FoundNo Family History Records FoundNo Family History Records Found Advance Directives No Advanced Directives Records FoundNo Advanced Directives Records FoundNo Advanced Directives Records FoundNo Advanced Directives Records Found Additional Source Comments INFORMATION SOURCE (unrecogn ized section and content) DATE CREATED AUTHOR AUTHOR'S ORGANIZ ATION 11/25/2022 [facility] DATE CREATED AUTHOR AUTHOR'S ORGANIZ ATION 12/25/2022 [facility] DATE CREATED AUTHOR AUTHOR'S ORGANBRANDYN ATION 05/18/2023 [facility] FOR RECORDS PERTAINING TO PATIENTS WHO ARE OR HAVE BEEN ENROLLED IN A CHEMICAL DEPENDENCY/SUBSTANCEABUSE PROGRAM, SOME INFORMATION MAY BE OMITTED. This clinical summary was aggregated from multiple sources. Caution should be exercised in using it in the provision of clinical care. This summary normalizes information from multiple sources, and as a consequence, information in this document may materially change the coding, format and clinical context of patient data. In addition, data may be omitted in some cases. CLINICAL DECISIONS SHOULD BE BASED ON THE PRIMARY CLINICAL RECORDS. [facility]. provides no warranty or guarantee of the accuracy or completeness of information in this document.
[2023-07-20 08:03] LABS: Glucose GTT-Gestation. Fasting 89 mg/dL (<105)
[2023-07-20 09:23] LABS: Glucose GTT-Gestational 1 Hr 169 mg/dL (<190)
[2023-07-20 09:37] LABS: Glucose GTT-Gestational 2 Hr 140 mg/dL (<165)
[2023-07-20 10:51] LABS: Glucose GTT-Gestational 3 Hr 104 L (<145)
== END | disposition home or self-care (01) ==
LOC: LAB 06:56
PROVIDERS: PCP Physician Assistant; Referring Provider Obstetrics & Gynecology; Visit Provider Obstetrics & Gynecology
DX: O99.810 Abnormal glucose complicating pregnancy (principal); Z3A.00 Weeks of gestation of pregnancy not specified
CPT/HCPCS: 36415; 82951; 82952

== ENCOUNTER → 2023-09-20 | Outpatient (CLI) | payer BC, SELFPAY ==
[2023-09-20 11:55] LABS: Group B Strep DNA By PCR Negative (Negative); Internal Control PASS; Probe Check PASS; Specimen Processing Control PASS
== END | disposition home or self-care (01) ==
PROVIDERS: PCP Physician Assistant; Referring Provider Registered Nurse; Visit Provider Registered Nurse
DX: Z34.90 Encounter for supervision of normal pregnancy, unspecified, unspecified trimester (principal)
CPT/HCPCS: 87081; 87653

== ENCOUNTER 2023-10-07 01:06 | Inpatient (IN) | payer BC, SELFPAY ==
[2023-10-07] VITALS (22 sets, daily range): BP systolic 113–137; BP diastolic 58–83; PULSE 69–111; RESP 14–18; TEMP 36.3–37.2; O2SAT 95–98; BMI 31.6
[2023-10-07 01:59] LABS: Absolute Lymphocyte Count 1.07 X10^3/uL (0.83-4.51); Absolute Neutrophil Count 16.5 X10^3/uL (2.0-7.7); Basophil# 0.04 X10^3/uL; Basophil% 0.2 % (0-1); Hematocrit 36.5 % (37-47); Lymphocyte # 1.07 X10^3/ul (0.83-4.51); Lymphocyte % 5.8 % (19-41); Mean Corp Hgb Conc 32.9 g/dL (32-36); Mean Corpuscular Volume 85.1 fL (81-99); Mean Platelet Vol. 12.3 fl (6.2-12.0); Monocyte# 0.55 X10^3/uL; NRBC Flagged by Analyzer 0 % (0-5); Neutrophil # 16.53 X10^3/uL (2.7-7.7); Neutrophil % 90.4 % (47-70); Platelet Count 173 K/mm3 (150-450); RBC Distribution Width CV 13.5 % (11.6-14.6); RBC Distribution Width SD 41.2 fl (35.1-43.9); Red Blood Count 4.29 M/mm3 (4.2-5.4); White Blood Count 18.3 K/mm3 (4.4-11.0)
--- NOTE | 2023-10-07 02:13 | HP.PCM.OB_ITS ---
HPI - General General Date of Admission: 10/07/23 Chief Complaint: contractions HPI Narrative DELBERT WALLER, is a 27 F who presents at 40.1 with spontaneous contractions with worsening intensity since this afternoon. sudden gush of fluid around 8pm. 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 [employer] current occupational exposures/hazards: No pets and animals: Yes history of recent travel: No sexually active: Yes Smoking Status: Never smoker alcohol intake: current details: social substance use type: does not use caffeine: Yes luke/jain: Anabaptism seatbelt use: always do you feel safe at home: Yes 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 [employer] in [place] History Elective abortions Hx Para 0 Spontaneous abortions Hx # Term Pregnancies Ectopic pregnancies Hx # Pregnancies Multiple births # of living children Visit Details Expected Delivery Route/Plan Labor Preferences- CB/BF classes: will be taking labor support person: alana Estrella(sister) labor intervention preferences: [] pain management options preferred: epidural cut cord/dad catch: [] : wants PP control planned: [] discussed possible routes of delivery and associated risks: [] special requests: [] Plans Covid status: [] Flu vaccine: [] Tdap vaccine: obtained Rhogam: 07/14 LARC form signed: [] Problem list reviewed and updated with the most current plan of care details and appropriate orders placed. Relevant counseling for the gestational age provided. Continue routine care and follow up unless otherwise noted in visit notes/problem list details OB Flowsheet Initial Weight: 144 lb Date -?-?-?-?-?-?-?-?-?-?-?-?- EGA Weight BP Urine Prot -?-?-?-?-?-?-?-?-?-?-?-?- Glucose FHR FuHt Pres Dilation -?-?-?-?-?-?-?-?-?-?-?-?- Effaced St Visit Note 03/01/23 -?-?-?-?-?-?-?-?-?-?-?-?- 8w 5d 144 lb 6 oz (+6 oz) 100/67 -?-?-?-?-?-?-?-?-?-?-?-?- 163 -?-?-?-?-?-?-?-?-?-?-?-?- LC- IFTIKHAR confirme d with 1st trim US. +FHR today. s/p lap surg for ruptured ovarian cyst. accepts carrier and nipt. 03/30/23 -?-?-?-?-?-?-?-?-?-?-?-?- 12w 6d 147 lb 6 oz (+3 lb 6 oz) 114/72 Negative -?-?-?-?-?-?-?-?-?-?-?-?- Negative 155 -?-?-?-?-?-?-?-?-?-?-?-?- LC- no vb/crampi ng. low risk nipt. normal nob labs. discussed and declines afp. 04/20/23 -?-?-?-?-?-?-?-?-?-?-?-?- 15w 6d 155 lb 6 oz (+11 lb 6 oz) 113/69 Negative -?-?-?-?-?-?-?-?-?-?-?-?- Negative 150 -?-?-?-?-?-?-?-?-?-?-?-?- LC- no vb/crampi ng. has anatomy scheduled. no concerns. 05/18/23 -?-?-?-?-?-?-?-?-?-?-?-?- 19w 6d 161 lb 8 oz (+17 lb 8 oz) 106/69 Negative -?-?-?-?-?-?-?-?-?-?-?-?- Negative 152 -?-?--?-?-?-?-?-?-?-?-?-?- LC- no vb/crampi ng. normal anatomy. ovarian cyst collapsing on left side. (5x2x2.) 06/12/23 -?-?-?-?-?-?-?-?-?-?-?-?- 23w 3d 167 lb (+23 lb) 97/61 Negative -?-?-?-?-?-?-?-?-?-?-?-?- Negative 145 24 -?-?-?-?-?-?-?-?-?-?-?-?- KW- no vb/crampi ng. good fm. 28 week labs discussed in depth. discussed rhogam/tdap and future office visits, and seeing all providers. 07/14/23 -?-?-?-?-?-?-?-?-?-?-?-?- 28w 0d 177 lb (+33 lb) 125/73 -?-?-?-?-?-?-?-?-?-?-?-?- 148 29 -?-?-?-?-?-?-?-?-?-?-?-?- JV- failed 1 hr gct today. labs and 28 week labs overall wnl. ordering 3 hr. tdap and rhogam today. 07/27/23 -?-?-?-?-?-?-?-?-?-?-?-?- 29w 6d 176 lb (+32 lb) 99/59 Negative -?-?-?-?-?-?-?-?-?-?-?-?- Negative 132 30 -?-?-?-?-?-?-?-?-?-?-?-?- LC- no vb/ctx/lo f. good fm. passed 3 hour glucose. preference form reviewed 08/10/23 -?-?-?-?-?-?-?-?-?-?-?-?- 31w 6d 177 lb (+33 lb) 100/68 Negative -?-?-?-?-?-?-?-?-?-?-?-?- Negative 125 32 -?-?-?-?-?-?-?-?-?-?-?-?- LC- no vb/ctx/lo f. good fm. 08/28/23 -?-?-?-?-?-?-?-?-?-?-?-?- 34w 3d 184 lb (+40 lb) 107/65 Negative -?-?-?-?-?-?-?-?-?-?-?-?- Negative 135 35 Cephalic -?-?-?-?-?-?-?-?-?-?-?-?- KW- no vb/lof/ct x. good fm. Discussed GBS and rest of POC. 09/14/23 -?-?-?-?-?-?-?-?-?-?-?-?- 36w 6d 186 lb (+42 lb) 101/67 Negative -?-?-?-?-?-?-?-?-?-?-?-?- Negative 140 36 Cephalic -?-?-?-?-?-?-?-?-?-?-?-?- LC- no vb/ctx/lo f. good fm. declines ve today. gbs collected. 09/20/23 -?-?-?-?-?-?-?-?-?-?-?-?- 37w 5d 190 lb 6 oz (+46 lb 6 oz) 110/70 -?-?-?-?--?-?-?-?-?-?-?-?- 120 37 Cephalic -?-?-?-?-?-?-?-?-?-?-?-?- LC- no vb/ctx/lo f. good fm. LC- no vb/ctx/lof. good fm. recollected gbs. 09/25/23 -?-?-?-?-?-?-?-?-?-?-?-?- 38w 3d 189 lb 6 oz (+45 lb 6 oz) 103/66 Negative -?-?-?-?-?-?-?-?-?-?-?-?- Negative 120 38 Cephalic -?-?-?-?-?-?-?-?-?-?-?-?- KW- no vb/ctx/lo f. good fm. declines exam today. labor precautions reviewed 10/02/23 -?-?-?-?-?-?-?-?-?-?-?-?- 39w 3d 193 lb (+49 lb) 114/76 Negative -?-?-?-?-?-?-?-?-?-?-?-?- Negative 130 40 Cephalic 0 -?-?-?-?-?-?-?-?-?-?-?-?- -3 KW- no v b/lof/ctx. good fm. labor precautions discussed 41 week IOL NST FHR Rate Baby A Baseline: 120 Variability:: Moderate Accelerations:: 15 x 15 Decelerations:: Variable NST Reactive:: Yes FHR Category:: Category II ROS Cardiovascular Cardiovascular: Denies abdominal pain, chest pain, diaphoresis or dyspnea Respiratory/Chest Respiratory/Chest: Denies change in mental status, chest congestion, chest tightness, cough, shortness of breath at rest, shortness of breath with exertion, breast mass, breast pain, breast skin changes, breast swelling, change in breast shape or nipple discharge Genitourinary Genitourinary: Reports change in urinary stream Musculoskeletal Musculoskeletal: Reports none Integumentary Integumentary: Reports none Neurologic Neurologic: Reports none Psychiatric Psychiatric: Reports none Endocrine Endocrinology: Reports none Hematologic/Lymphatic Hematologic/Lymphatic: Reports none Allergic/Immunologic Allergic/Immunologic: Reports none Vital Signs Vital Signs Vital Signs: 10/07/23 01:10 10/07/23 01:10 Pulse Rate 94 Blood Pressure 129/77 H BP Systolic 129 BP Diastolic 77 Weight Weight: 184 lb Body Mass Index (BMI) 31.6 Physical Exam Const alert, oriented x3 and no apparent distress General Appearance: cooperative, comfortable and well kempt Orientation / Consciousness: awake and oriented to person Exam Limitations: no limitations HEENT normocephalic Neck full ROM Chest inspection of chest normal Resp normal respiratory effort, normal air movement and no retractions Effort and Inspection: able to speak in complete sentences and symmetric chest movement Cardio regular rate Peripheral Pulses: pulses 2+ throughout GI normal to inspection, nondistended, normoactive bowel sounds Inspection: gravid no CVA tenderness and appearance of the vagina normal External Female Exam: normal appearance of the urethra; Negative for external lesion OB / External & Speculum: external exam normal Manual OB Exam: estimated gestational size appropriate, presentation cephalic, dilated 7, effaced 80 and station -1 Uterus Palpation: Negative for uterus tender Extremity normal to inspection Skin no rashes or lesions noted Neuro deep tendon reflexes 2+ bilaterally and gait normal Motor Exam: strength 5/5 throughout and clonus absent Psych Activity / Motor Behavior: appropriate eye contact Speech: normal speech Labs Labs Labs: Blood Type A NEGATIVE Antibody Screen NEGATIVE Hct 36.5 % (37-47) L Hgb 12.0 g/dL (12.0-15.0) Pap Smear Negative Obstetrics Ultrasound Syphilis Total Ab Non-reactive Rubella IgG Antibody Reactive (Nonreactive) Hep Bs Antigen Non-Reactive (Nonreactive) Hepatitis C Antibody Non-Reactive (Nonreactive) Chlamydia DNA (ADONAY) Negative (Negative) N.gonorrhoeae DNA (ADONAY) Negative (Negative) HIV 1&2 Antibody Non-Reactive (Nonreactive) Glucose 1 Hr 50 gm 146 mg/dL (70-140) H Gest Glucose Tolerance MG/DL Group B Strep DNA Negative (Negative) Miscellaneous Test Assessment & Plan (1) Spontaneous onset of labor: (2) Supervision of high-risk : COMMENT: PRR, BOY! IFTIKHAR 10/06/2023. : Sameer. normal anatomy and consistent IFTIKHAR (3) Rh negative status during : COMMENT: rhogam with bleeding, 28 weeks, pp, prn (4) : QUALIFIERS: Weeks of gestation: 39 weeks Qualified Code(s): Z3A.39 - 39 weeks gestation of COMMENT: NIPT low risk 6w 4d iup on ultrasound 02/15/23 in ER with ruptured left ovarian cyst present normal anatomy. GBS neg. PLAN: Plan Patient presents IAL, plan expectant management for , pitocin/AROM PRN if needed. Pain management: plans unmedicated. GBS negative. Management of any complications: none I have reviewed the [facility] and made any clinically relevant updates. updated on admission, exam and poc. agrees with primary midwifery management for low risk patient. available as needed.
[2023-10-07 03:52] LABS: Syphilis Antibodies Non-reactive
[2023-10-07] MEDS: Lactated Ringers 1,000 ML 999 ML IV (05:52)
--- NOTE | 2023-10-07 06:03 | PN.OBGYN_ITS ---
Subjective Subjective breathing through and coping with contractions Objective Data Objective Data Vital Signs: Vital Signs Temp Pulse Resp BP 98.2 F 85 18 127/68 H 10/07/23 04:32 10/07/23 04:32 10/07/23 04:32 10/07/23 04:32 Weight: 184 lb Body Mass Index (BMI) 31.6 Lab / Micro Data 10/07/23 01:15 Labs: Laboratory Results - last 24 hr 10/07/23 01:15: WBC 18.3 H, RBC 4.29, Hgb 12.0, Hct 36.5 L, MCV 85.1, MCH 28.0, MCHC 32.9, RDW Std Deviation 41.2, RDW Coeff of Ras 13.5, Plt Count 173, MPV 12.3 H, Immature Gran % (Auto) 0.600, Neut % (Auto) 90.4 H, Lymph % (Auto) 5.8 L , Hernando % (Auto) 3.0, Eos % (Auto) 0.0, Baso % (Auto) 0.2, Absolute Neuts (auto) 16.5 H, Absolute Lymphs (auto) 1.07, Nucleated RBC % 0, Syphilis Total Ab Non- reactive, Blood Type A NEGATIVE, Antibody Screen NEGATIVE Physical Exam Const alert and oriented x3 Resp normal respiratory effort and normal air movement Manual OB Exam: dilated 10, effaced 100 and station +1 Amniotic Fluid: clear amniotic fluid Assessment & Plan (1) Spontaneous onset of labor: COMMENT: making cervical change (2) Spontaneous rupture of amniotic membranes: COMMENT: clear fluid afebrile gbs neg PLAN: Plan -start second stage -anticipate -maternal and status reassuring. occ variables that resolve with position changes.
[2023-10-07] MEDS: DiphenhydrAMINE 50 MG/ML Syringe IV (09:17)
[2023-10-07] MEDS: 0.9% Saline Lock 10 ML Syringe IV (09:17)
--- NOTE | 2023-10-07 11:02 | OP.PCM_ITS ---
Assessment & Plan (1) (spontaneous vaginal delivery): COMMENT: LC 40wks IAL boy: Ronnell Maternal Data Information IFTIKHAR Calculator Estimated Delivery Date Method Current WG Current Estimate 10/06/23 LMP (Certain) 40w 1d Final IFTIKHAR: 10/06/23 Final IFITKHAR Source: LMP Gestational age: 40.1 Vaginal Delivery Maternal Presentation Maternal Presentation: Active Labor and Spontaneous Rupture of Membranes Maternal Presentation: at 40.1 presented in active labor with spontaneous ROM. progressed unmedicated to fully with urge to push, small anterior lip re-presented and Benadryl 50mg provided with excellent effect and was able to resume second stage. Operative Information Date of Procedure: 10/07/23 Pre-Operative Diagnosis: see problem list Surgery / Procedure Performed: Spontaneous Vaginal Delivery Type of Anesthesia: None Estimated Blood Loss: 150 Time of Delivery: 10:18 Findings Description of Procedure: Patient began pushing and delivered the head in the TOM presentation. The head was delivered atraumatically and a loose nuchal cord ?1 was identified and easily reduced over the 's head. The anterior and posterior shoulders delivered without complication followed by the rest of the infant and the was placed on the maternal abdomen. Delayed cord clamping was employed for approximately 60 seconds. Cord was clamped and cut and gentle traction was applied to the cord and the placenta delivered spontaneously immediately following it was noted to be intact with three-vessel cord. The perineum and vagina were inspected and noted to have no laceration. EBL was 150cc. Patient and tolerated delivery well and entered recovery phase bonding skin to skin. pt declines prophylactic pitocin, bleeding well controlled, would accept if increased vaginal bleeding/hemorrhage. Dr. Snyder updated on . Presentation: Vertex Amniotic Membrane Rupture Type: Spontaneous Time of Membrane Rupture: 1999 Amniotic Fluid Description: Clear Placental Delivery Description: Spontaneous Placenta Disposition: [facility] Cord Vessel Description: 3 Vessels Cord Entanglement: Around neck x 1, loose A Gender: Male (1 minute): 8 (5 minute): 9 Delayed Cord Clamping: Yes Post Vaginal Delivery Laceration: None Procedures Urinary/Genital [id number]: [id number] Vaginal Delivery [facility]
--- NOTE | 2023-10-07 11:12 | DCINST_ITS ---
Discharge Instructions Diet Discharge Diet: No restrictions Activity Discharge Activity: May Not Drive and May Shower May resume sexual activity in: 6 weeks Weight Bearing Status: Full weight bearing Dressing / Incision Call your doctor if your incision/area has: Sudden Increased Bleeding, Increased Pain/ Swelling and Foul Smelling Discharge Call your doctor if you observe: Fever of 101 or Higher, Numbness or Tingling, Change in Color, Inability to urinate, Inability to have a bowel movement, Using more than 1 pad per hour, Shortness of breath, Dizziness, Fainting spells, Chest pain, Calf discomfort and Uncontrolled pain Follow Up Care Please Follow Up With: Marika Diaz CNM When: 6 weeks , please call office to make an appointment. Congratulations on the of your baby boy!! Test Results: Test results from this visit will be discussed in further detail at your follow- up appointment, if applicable. Discharge Plan Admission Admit Date/Time: 10/07/23 01:06 Attending Provider: Marika Diaz Primary Care Provider: Autumn Acosta Discharge Orders/Prescriptions Prescriptions: No Action vit no.[id number] [Classic ] .Route Referrals / Follow Up: Autumn Acosta PA [Primary Care Provider] - Disposition Disposition (needs filled in before D/C Order can be placed): Home, Self Care
[2023-10-07] MEDS: Benzocaine/Lanolin/Aloe Vera 1 SPRAY EACH TOPICAL (12:30)
[2023-10-07] MEDS: Dibucaine 30 GM Tube 1 APPLIC TOPICAL (12:30)
[2023-10-07] MEDS: Senna/Docusate Sodium 1 Tablet PO (12:31)
[2023-10-07] MEDS: Acetaminophen 500 MG Tablet 1000 MG PO (22:31)
[2023-10-08] MEDS: Rho(D) Immune Globulin 300 MCG (1500 Unit) Syringe IV (04:32)
[2023-10-08] MEDS: 0.9% Saline Lock 10 ML Syringe IV (04:33)
[2023-10-08 04:40] VITALS: BP 109/59; PULSE 80; RESP 16; TEMP 36.4; O2SAT 97
[2023-10-08 04:41] VITALS: BP 109/59; PULSE 81
[2023-10-08 08:30] VITALS: BP 116/60; PULSE 90; RESP 14; TEMP 36.6; O2SAT 97
[2023-10-08 08:50] VITALS: BP 116/60; PULSE 88
--- NOTE | 2023-10-08 10:18 | PCM.PN.OB ---
Subjective Subjective Patient doing well without complaints. Tolerating PO. Ambulating and voiding without difficulty. Feeding well. Denies chest pain, shortness of breath, calf pain/swelling, fevers, chills, lightheadedness. Objective Data Objective Data Vital Signs: Vital Signs Temp Pulse Resp BP Pulse Ox O2 Del Method 97.8 F 88 14 116/60 97 Room Air 10/08/23 08:30 10/08/23 08:50 10/08/23 08:30 10/08/23 08:50 10/08/23 08:30 10/08/23 08:30 Oxygen Delivery Method Room Air Weight: 184 lb Body Mass Index (BMI) 31.6 Intake & Output: Intake and Output for Last 24 Hours 10/06/23 10/07/23 10/08/23 23:59 23:59 23:59 Intake Total 1000 / 1000 Output Total 1250 / 1250 Balance -250 / -250 Lab / Micro Data 10/07/23 01:15 Labs: Laboratory Results - last 24 hr 10/07/23 14:50: Screen NEGATIVE, Baby's Blood Type B POSITIVE, Baby's ROSEANNE NEGATIVE Physical Exam Const alert and no apparent distress Neck full ROM Chest inspection of chest normal Resp normal respiratory effort and normal air movement Cardio regular rate and regular rhythm GI normal to inspection, nondistended, normoactive bowel sounds Uterus Palpation: uterus fundus firm Extremity normal to inspection, full ROM, normal capillary refill and no calf tenderness Skin no rashes or lesions noted Psych mental status grossly normal Assessment & Plan (1) (spontaneous vaginal delivery): COMMENT: LC 40wks IAL boy: Ronnell (2) Rh negative status during : COMMENT: rhogam with bleeding, 28 weeks, pp, prn PLAN: Plan s/p PPD #1 1. routine post delivery care 2. breast feeding- support given 3. rh positive 4. rubella immune 5. desires d/c home today
[2023-10-08 13:05] VITALS: BP 125/62; PULSE 80; PULSE 92; RESP 14; TEMP 36.2; O2SAT 98
== END 2023-10-08 19:17 | disposition home or self-care (01) | DRG 807 ==
LOC: WPOUT 01:09 → WP 01:09
PROVIDERS: Admitting Provider Registered Nurse; PCP Physician Assistant; Visit Provider Registered Nurse
DX: O48.0 Post-term pregnancy (principal); Z37.0 Single live birth; O69.81X0 Labor and delivery complicated by cord around neck, without compression, not applicable or unspecified; Z3A.40 40 weeks gestation of pregnancy
CPT/HCPCS: 59025; 59050; 85025; 85461; 86780; 86850; 86900; 86901; 90384; 99221; J7120; A4216; G0378; J2790; J2791

== ENCOUNTER → 2023-12-11 | Outpatient (CLI) | payer BC, SELFPAY ==
--- NOTE | 2023-12-11 17:12 | US_ITS ---
HISTORY: Follow-up left ovarian cyst. TECHNIQUE: Transabdominal and transvaginal pelvic ultrasound was performed with nye scale , spectral Doppler, and color Doppler evaluation. 126 images. COMPARISON: 12/15/2022. FINDINGS: UTERUS: 8.1 x 3.9 x 5.9 cm. Anteverted. ENDOMETRIAL THICKNESS: 4 mm. RIGHT OVARY: 1.1 x 1.6 x 2.8 cm. Vascular flow demonstrated. No adnexal masses LEFT OVARY: 2.9 x 3.6 x 4.5 cm. Vascular flow demonstrated. 2.4 x 2.9 x 4 cm cyst with lacy internal echoes, previously 2 x 2.2 x 2.4 cm. FREE FLUID: None. US/Pelvic w/ Transvaginal IMPRESSION: 4 cm hemorrhagic left ovarian cyst, previously 2.4 cm. Electronically Signed: Evelin Powers MD at 10:01 EDT ,
== END | disposition home or self-care (01) ==
LOC: US 17:10
PROVIDERS: PCP Physician Assistant; Referring Provider Registered Nurse; Visit Provider Registered Nurse
DX: N83.202 Unspecified ovarian cyst, left side (principal)
CPT/HCPCS: 76830; 76856

== ENCOUNTER → 2024-02-02 | Outpatient (CLI) | payer BC, SELFPAY ==
--- NOTE | 2024-02-02 13:03 | US_ITS ---
STUDY: ULTRASOUND OF THE FEMALE PELVIS - COMPLETE REASON FOR EXAM: Female, 28 years old. Follow up left ovarian cyst LMP: December 26, 2023. TECHNIQUE: Transabdominal and Transvaginal TECHNICAL QUALITY: Adequate. COMPARISON: Comparison is made with prior study dated December 11, 2023. FINDINGS: The uterus is anteverted and is in a midline position. The uterus measures 7.8 cm x 5.4 cm x 3.5 cm. Normal uterine cervix. The endometrium measures 4 mm in thickness, and is hyperechoic. There is no demonstrated endometrial mass. There is no demonstrated myometrial mass. I.U.D. - The patient does not have an I.U.D. The right ovary is visualized. The right ovary measures 2.3 cm x 2.1 cm x 2 cm. There is no right ovarian cyst or ovarian mass. There is no visualized right adnexal mass or complex lesion. There is normal arterial and normal venous vascularity. The left ovary is visualized. The left ovary measures 5.3 cm x 5.5 cm x 3.6 cm. There is a 4.6 cm x 4.8 cm x 3 centimeters cyst with low level echoes within it. This may represent a hemorrhagic cyst. There is been slight increase in size as compared to prior study. There is no visualized left adnexal mass or complex lesion. There is normal arterial and normal venous vascularity. There is no fluid in the cul-de-sac. US/Pelvic w/ Transvaginal IMPRESSION: Slight increased size of the previously demonstrated hemorrhagic cyst in the left ovary presently measuring 4.6 cm x 4.8 cm x 3 cm. Electronically Signed: Shree Wise MD at 13:57 EDT ,
== END | disposition home or self-care (01) ==
LOC: US 12:59
PROVIDERS: PCP Physician Assistant; Referring Provider Registered Nurse; Visit Provider Registered Nurse
DX: N83.209 Unspecified ovarian cyst, unspecified side (principal)
CPT/HCPCS: 76830; 76856

== ENCOUNTER → 2024-03-25 | Outpatient (CLI) | payer BC, SELFPAY ==
--- NOTE | 2024-03-25 16:39 | US_ITS ---
STUDY: ULTRASOUND OF THE FEMALE PELVIS - COMPLETE REASON FOR EXAM: Female, 28 years old. Ovarian cyst LMP: December 26, 2023. TECHNIQUE: Transabdominal and Transvaginal TECHNICAL QUALITY: Adequate. COMPARISON: Comparison is made with prior study February 02, 2024. FINDINGS: The uterus is anteverted and is in a midline position. The uterus measures 9.3 cm x 5.3 cm x 3.6 cm. Normal uterine cervix. The endometrium measures 12 mm in thickness, and is hyperechoic. There is no demonstrated endometrial mass. There is no demonstrated myometrial mass. I.U.D. - The patient does not have an I.U.D. The right ovary is visualized. The right ovary measures 3.2 cm x 2.1 cm x 2.3 cm. A dominant follicle is seen within the right ovary measuring 1.4 cm x 1.5 cm x 1.3 centimeters. There is no visualized right adnexal mass or complex lesion. There is normal arterial and normal venous vascularity. The left ovary is visualized. The left ovary measures 4.7 cm x 4.3 cm x 3.2 cm. There is a 3.7 cm x 3.7 cm by 2.4 cm cyst with low level echoes within it in the left ovary. This has decreased in size as compared to prior study. There is no visualized left adnexal mass or complex lesion. There is normal arterial and normal venous vascularity. There is no fluid in the cul-de-sac. The pre void volume of the bladder was 284 ml. US/Pelvic w/ Transvaginal IMPRESSION: Small follicle in the right ovary. Persistent 3.7 cm x 3.75 x 2.4 cm cyst in the left ovary with low-level echoes within it. This has decreased in size as compared to prior study. Electronically Signed: Shree Wise MD at 14:51 EDT ,
== END | disposition home or self-care (01) ==
LOC: US 16:39
PROVIDERS: PCP Physician Assistant; Referring Provider Obstetrics & Gynecology; Visit Provider Obstetrics & Gynecology
DX: N83.209 Unspecified ovarian cyst, unspecified side (principal)
CPT/HCPCS: 76830; 76856

== ENCOUNTER → 2024-05-24 | Outpatient (CLI) | payer BC, SELFPAY ==
--- NOTE | 2024-05-24 16:20 | US_ITS ---
EXAM: US FIRST TRIMESTER , TRANSABDOMINAL CLINICAL INDICATION: monitor ovarian cyst TECHNIQUE: Real-time transabdominal obstetrical ultrasound of the maternal pelvis and a first trimester with image documentation. COMPARISON: Pelvic ultrasound from 03/25/2024. FINDINGS: GESTATION: Early intrauterine with gestational sac containing a small yolk sac. Too early to visualize a pole. Gestational age by sound: 5 weeks 5 days, IFTIKHAR 01/19/2025. PLACENTA/AMNIOTIC FLUID: Cannot be adequately evaluated due to the early gestational age. UTERUS/CERVIX: Unremarkable. No myometrial mass. OVARIES: Right ovary: 2.6 x 2.6 x 1.7 cm. Left ovary: 4.8 x 4.2 x 3.7 cm. Stable complex left ovarian cyst measuring 3. 2.6 x 3.0 cm. FREE FLUID: No free fluid. US/Pelvic w/ Transvaginal IMPRESSION: 1. Early intrauterine gestational sac measuring 5 weeks 5 days, too early to visualize a pole. Interval follow-up is recommended. 2. Stable complex left ovarian cyst measuring 3. 2.6 x 3.0 cm. This may indicate a hemorrhagic cyst or endometrioma. Electronically Signed: Yohan Parker MD at 23:39 EST ,
== END | disposition home or self-care (01) ==
LOC: US 16:19
PROVIDERS: PCP Physician Assistant; Referring Provider Obstetrics & Gynecology; Visit Provider Obstetrics & Gynecology
DX: N83.209 Unspecified ovarian cyst, unspecified side (principal)
CPT/HCPCS: 76830; 76856

== ENCOUNTER → 2024-06-10 | Outpatient (CLI) | payer BC, SELFPAY ==
[2024-06-10 12:30] LABS: Absolute Lymphocyte Count 1.49 X10^3/uL (0.83-4.51); Basophil# 0.04 X10^3/uL; Basophil% 0.5 % (0-1); Eosinophil# 0.05 X10^3/uL; Eosinophils% 0.6 % (0-5); Hematocrit 41.4 % (37-47); Hemoglobin 13.6 g/dL (12.0-15.0); Lymphocyte # 1.49 X10^3/ul (0.83-4.51); Lymphocyte % 18.1 % (19-41); Mean Corp Hgb Conc 32.9 g/dL (32-36); Mean Corpuscular Hgb 29.2 pg (27.0-32.0); Mean Corpuscular Volume 88.8 fL (81-99); Mean Platelet Vol. 10.7 fl (6.2-12.0); Monocyte# 0.58 X10^3/uL; Monocyte% 7.1 % (0-10); NRBC Flagged by Analyzer 0 % (0-5); Neutrophil # 6.02 X10^3/uL (2.7-7.7); Neutrophil % 73.3 % (47-70); Platelet Count 217 K/mm3 (150-450); RBC Distribution Width CV 13.5 % (11.6-14.6); RBC Distribution Width SD 44.3 fl (35.1-43.9); Red Blood Count 4.66 M/mm3 (4.2-5.4); White Blood Count 8.2 K/mm3 (4.4-11.0)
[2024-06-10 13:36] LABS: HIV - WCH Non-Reactive (Nonreactive); Hepatitis B Surface Antigen Non-Reactive (Nonreactive); Hepatitis C Antibody Non-Reactive (Nonreactive); Rubella IgG Reactive (Nonreactive); Syphilis Antibodies Non-reactive
[2024-06-12 21:06] LABS: Chlamydia By Nucleic Acid AMP Negative (Negative); Gonococcus By Nucleic Acid AMP Negative (Negative)
== END | disposition home or self-care (01) ==
LOC: BWCLAB 11:56
PROVIDERS: PCP Physician Assistant; Referring Provider Advanced Practice Midwife; Visit Provider Advanced Practice Midwife
DX: O09.90 Supervision of high risk pregnancy, unspecified, unspecified trimester (principal); Z3A.00 Weeks of gestation of pregnancy not specified
CPT/HCPCS: 36415; 85025; 86703; 86762; 86780; 86803; 86850; 86900; 86901; 87086; 87088; 87340; 87491; 87591

== ENCOUNTER → 2024-10-30 | Outpatient (CLI) | payer BC, SELFPAY ==
[2024-10-30 12:08] LABS: Absolute Lymphocyte Count 1.09 X10^3/uL (0.83-4.51); Basophil# 0.02 X10^3/uL; Basophil% 0.3 % (0-1); Eosinophil# 0.03 X10^3/uL; Eosinophils% 0.4 % (0-5); Hematocrit 36.9 % (37-47); Hemoglobin 12.2 g/dL (12.0-15.0); Lymphocyte # 1.09 X10^3/ul (0.83-4.51); Lymphocyte % 14.3 % (19-41); Mean Corp Hgb Conc 33.1 g/dL (32-36); Mean Corpuscular Hgb 30.1 pg (27.0-32.0); Mean Corpuscular Volume 91.1 fL (81-99); Mean Platelet Vol. 11.5 fl (6.2-12.0); Monocyte# 0.42 X10^3/uL; Monocyte% 5.5 % (0-10); NRBC Flagged by Analyzer 0 % (0-5); Neutrophil % 78.6 % (47-70); Platelet Count 171 K/mm3 (150-450); RBC Distribution Width CV 12.6 % (11.6-14.6); Red Blood Count 4.05 M/mm3 (4.2-5.4); White Blood Count 7.6 K/mm3 (4.4-11.0)
[2024-10-30 13:29] LABS: Glucose Challenge Gest 1H 50g 122 mg/dL (70-140); HIV Nonreactive (Nonreactive); Syphilis Antibodies Nonreactive (Nonreactive)
== END | disposition home or self-care (01) ==
PROVIDERS: Advanced Practice Midwife; PCP Physician Assistant; Referring Provider Obstetrics & Gynecology; Visit Provider Obstetrics & Gynecology
DX: O09.90 Supervision of high risk pregnancy, unspecified, unspecified trimester (principal); Z3A.00 Weeks of gestation of pregnancy not specified; Z13.1 Encounter for screening for diabetes mellitus
CPT/HCPCS: 36415; 82950; 85025; 86703; 86780; 86850; 86900; 86901